=== PATIENT | female | born 2000 | race Caucasian/White ===

== ENCOUNTER 2020-05-23 18:45 | Outpatient (CLI) | payer OTHER, SELFPAY ==
[2020-05-23] MEDS ORDERED: OXYTOCIN 30 UNITS IN 0.9% NaCl 500ML IV BAG (J2590) ONE (19:26)
[2020-05-23] MEDS ORDERED: OXYTOCIN 30 UNITS IN 0.9% NaCl 500ML IV BAG (J2590) As Ordered ONE (19:26)
[2020-05-23] MEDS ORDERED: BUTORPHANOL 2 MG/ML INJ (J0595) As Ordered ONE (23:30)
[2020-05-23] MEDS ORDERED: PROMETHAZINE INJ 25 MG/ML VIAL (J2550) ONE (23:30)
[2020-05-23] MEDS ORDERED: BUTORPHANOL 2 MG/ML INJ (J0595) ONE (23:30)
[2020-05-23] MEDS ORDERED: PROMETHAZINE INJ 25 MG/ML VIAL (J2550) As Ordered ONE (23:30)
[2020-05-24] MEDS ORDERED: OXYTOCIN 30 UNITS IN 0.9% NaCl 500ML IV BAG (J2590) As Ordered ONE (00:23)
[2020-05-24] MEDS ORDERED: OXYTOCIN 30 UNITS IN 0.9% NaCl 500ML IV BAG (J2590) ONE (00:23)
[2020-05-24] MEDS ORDERED: IBUPROFEN 800 MG TAB ONE ×3 (00:23→18:31)
[2020-05-24] MEDS ORDERED: LIDOCAINE 1% MDV 20ML VIAL ONE (00:23)
[2020-05-24] MEDS ORDERED: LIDOCAINE 1% MDV 20ML VIAL As Ordered ONE (00:56)
[2020-05-24] MEDS ORDERED: IBUPROFEN 800 MG TAB As Ordered ONE ×3 (01:37→18:31)
== END 2020-05-23 20:50 ==
LOC: M LDO 18:45
PROVIDERS: ATTEND Obstetrics & Gynecology
DX: O36.8130 Decreased fetal movements, third trimester, not applicable or unspecified (principal); Z3A.32 32 weeks gestation of pregnancy
CPT/HCPCS: 59025; G0378; G0463; J2590

== ENCOUNTER 2020-06-26 12:52 | Outpatient (CLI) | payer OTHER, SELFPAY ==
[~2020-06-26] VITALS: Ht 157.5 cm; Wt 68.4 kg
[2020-06-26 13:07] VITALS: BP 117/77
[2020-06-26] MEDS ORDERED: STUACAP PO (13:12)
[2020-06-26] MEDS ORDERED: TUMS500C PO (13:12)
--- NOTE | 2020-06-26 23:44 | IPNPDOC ---
Obstetrical Progress Note Date of Service Jun 26, 2020 Subjective 20yo G1 at 37wks with c/o ctx. She was checked in office earlier and was 1cm. She reports active movement. No vaginal bleeding or LOF. O: vss AF cat 1 tracing, ctx q5-6 mins gen: well appearing abd: soft, nttp, gravid cx: 50/-3/post A/P: 20yo G1 @ 37wks with ctx, not active labor Reassuring status -home with labor precaution -f/u at next OB appt Objective Vital Signs Date Time Temp Pulse Resp B/P (MAP) Pulse Ox O2 Delivery O2 Flow Rate FiO2 06/26/20 13:07 97.6 100 18 117/77 (90) Room Air Assessment Variability: Moderate Heart Rate Tracing: Category I Tocometer Contractions: Yes Frequency: every 3-7 min. Sterile Vaginal Examination Dilation: 1cm Effacement (%): 50% Station: -3 Cervical Consistency: Medium Cervical Position: Posterior Postion/Presentation: Cephalic presentation Assessment and Plan Age: 20 : 1 Status: Reassuring JEANETH ECHAVARRIA MD. Jun 26, 2020 23:44
== END 2020-06-26 14:52 | disposition home or self-care (01) ==
LOC: M LDO 12:52
PROVIDERS: ATTEND Obstetrics & Gynecology
DX: O47.1 False labor at or after 37 completed weeks of gestation (principal); Z3A.37 37 weeks gestation of pregnancy
CPT/HCPCS: 59025; G0378; G0463

== ENCOUNTER 2020-07-07 17:08 | Outpatient (CLI) | payer OTHER ==
[~2020-07-07] VITALS: Ht 157.5 cm; Wt 68.2 kg
[~2020-07-07 17:08] MED LIST: STUACAP PO; TUMS500C PO
[2020-07-07 17:30] VITALS: BP 126/71
[2020-07-07] MEDS ORDERED: MAPA500T2 PO (17:46)
--- NOTE | 2020-07-07 18:17 | IPNPDOC ---
Text Note Date of Service The patient was seen on 07/07/20. NOTE S: 20yo 39.2wks by LMP c/w 1st trimester US. C/o Nausea w/ x1 emesis. Minimal PO since emesis. No diarrhea. No sick contacts or change in eating. Has BH intermittently. No VB, LOF. Good FM. No headaches or visual changes. O: VSS WNL ABD: NT, gravid LE: No edema, NT ENT: mildly dry MMM SVE: FHT: Cat 1, 130s, reactive, no decels, irregular ctx A/P: Fetus reassuring. No evidence of active labor or SROM. Likely food caused or gastroenteritis. Will tx to ER. Report given. Given hydration precautions. Has follow up 07/11/2020. VS,Fishbone, I+O VS, Fishbone, I+O Vital Signs Date Time Temp Pulse Resp B/P (MAP) Pulse Ox O2 Delivery O2 Flow Rate FiO2 07/07/20 17:30 98.4 82 18 126/71 (89) Sue Johnson MD Jul 07, 2020 18:17
== END 2020-07-07 18:15 | disposition home or self-care (01) ==
LOC: M LDO 17:08
PROVIDERS: ATTEND Obstetrics & Gynecology
DX: O99.613 Diseases of the digestive system complicating pregnancy, third trimester (principal); Z3A.39 39 weeks gestation of pregnancy
CPT/HCPCS: 59025; G0378; G0463

== ENCOUNTER 2020-07-12 21:34 | Outpatient (CLI) | payer OTHER ==
[~2020-07-12] VITALS: Ht 157.5 cm; Wt 69.5 kg
[~2020-07-12 21:34] MED LIST changes: +MAPA500T2 PO
--- NOTE | 2020-07-12 22:29 | IPNPDOC ---
Text Note Date of Service The patient was seen on 07/12/20. NOTE S: 20yo 40.0wks by LMP c/w 1st trimester US. C/o small trickle a few times an hour ago. Nothing since. Ctx q3-5min x1hr. Good FM. No headaches or visual changes. Asked to be "stripped". O: VSS WNL ABD: NT, gravid LE: No edema, NT SSE: No fluid or pooling, negative nitrazine, negative ferning SVE: FT//-3 FHT: Cat 1, 130s, reactive, no decels, irregular ctx TAUS: vtx, anterior placenta, deepest pocket 5.5cm A/P: Fetus reassuring. No evidence of active labor or SROM. Has IOL scheduled next week. Sue Johnson MD Jul 12, 2020 22:29
== END 2020-07-12 22:20 | disposition home or self-care (01) ==
LOC: M LDO 21:34
PROVIDERS: ATTEND Obstetrics & Gynecology
DX: O47.1 False labor at or after 37 completed weeks of gestation (principal); Z3A.40 40 weeks gestation of pregnancy
CPT/HCPCS: 59025; G0378; G0463

== ENCOUNTER 2020-07-16 04:52 | Inpatient (IN) | payer OTHER ==
[2020-07-16] VITALS (29 sets, daily range): BP systolic 113–155; BP diastolic 59–87
[~2020-07-16] VITALS: Ht 157.5 cm; Wt 69.1 kg
[2020-07-16] MEDS ORDERED: SERT25TA21 PO (05:28)
[2020-07-16] MEDS ORDERED: BENA25CA4 PO (05:28)
--- NOTE | 2020-07-16 06:09 | HPEPDOC ---
Obstetrical History & Physical General Date of Admission Jul 16, 2020 at 05:49 History of Present Illness 20yo at 40+4 presents for a labor check. She denied VB, LOF, decreased FM. She denied n/v/d, cp, sob, mills, visual changes, f/c, vaginal bleeding, dc, urinary sx. 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: History of STD (chlamydia 2018) Past Medical History Medical History Anxiety Surgical History: Tooth extraction Family History Significant Family History: No pertinent family hx Social History Psychosocial History: Anxiety * Smoker: non-smoker Alcohol: Denies Drugs: denies Imunizations Tdap status: current Allergies Coded Allergies: No Known Drug Allergies (Verified Allergy, Unknown, 07/07/20) Medications Scheduled Sertraline HCl (Sertraline HCl) 25 Mg Tablet, 75 MG PO DAILY Scheduled PRN Diphenhydramine HCl (Benadryl) 25 Mg Capsule, 2 CAP PO QPMP PRN for SLEEP Miscellaneous Medications Pnv No.63/Iron,Carb/Folic/Dha (Slava One Capsule) 1 Each Capsule, 1 CAP PO Physical Examination Physical Examination GENERAL: Alert and oriented times three. BREAST: . ABDOMEN: Gravid and non-tender to touch. FETUS: Is vertex (VTX) by sterile vaginal examination (SVE), fetus is vertex (VTX) by Alfonso. HEART RATE: Regular rate and rhythm. LUNGS: Clear to auscultation (CTA). EXTREMITIES: No edema. No clonus. Deep tendon reflexes (DTRs) + . Laboratory Data Urine Culture: Contaminated Pertinent Laboratoy Data Blood Type: O+ RBC Antibody Screen: Negative HIV: Negative Hepatitis B: Negative Rapid Plasma Reagin: Nonreactive Rubella: Immune Varicella: Nonreactive Chlamydia/Gonorrhea: Negative Group B Streptococcus: Negative Quad Screen Test: Declined Cystic Fibrosis: Declined Glucose Tolerance Test: 105 Anatomy Ultrasound Placenta Location: Anterior Normal Anatomy: Yes Steroid Therapy Steroid Therapy: No Vaginal Examination Dilation: 1cm Station: -3 Cervical Consistency: Medium Cervical Position: Posterior Presentation: Cephalic presentation (by US) Assessment Heart Rate (FHR): 120 Variability: Moderate Accelerations: Positive Decelerations: None Tocometer Contractions: Yes Frequency: regular Multi-drug resistant Organism: No history of MDRO Assessment/Plan Assessment 20yo at 40+4 presents for a labor check. VS normal (although borderline to mild range and prior mild range, suspect potential progression to GHTN). CAT I tracing, reactive. SVE 1cm which is unchanged from prior exam. On US she had an JULIO CESAR of 1.33cm, will admit for IOL for oligohydraminos. APC 1. 48# weight gain in 2. gestational thrombocytopenia, last 30JUL 142 3. anxiety on sertaline 75mg/d 4. oligohydraminos on admission 5. mild range BP 07/11 6. varicella non-immune Plan Admit and orient. Operations Architect and consent. Diet: clears Group B Streptococcus (GBS) negative Labs and intravenous (IV) per unit protocol. Counseled on Pitocin, DLFB and induction of labor (IOL). Anticipate normal spontaneous delivery () C-S as appropriate. If another mild range BP will draw pre-eclampsia labs ELAINA CALDWELL DO Jul 16, 2020 06:09
[2020-07-16 06:19] LABS: HEMATOCRIT 37.8 % (36.0-47.0); HEMOGLOBIN 12.8 g/dl (12.0-15.5); MEAN CORPUSCULAR HEMOGLOBIN 29.4 pg (27.0-33.0); MEAN CORPUSCULAR HGB CONC 33.9 g/dl (32.0-36.5); MEAN CORPUSCULAR VOLUME 86.7 fl (80.0-96.0); PLATELET COUNT, AUTOMATED 128 10^3/uL (150-450); RED BLOOD COUNT 4.36 10^6/uL (4.00-5.40); WHITE BLOOD COUNT 11.1 10^3/uL (4.0-10.0)
[2020-07-16] MEDS ORDERED: BUTORPHANOL 2 MG/ML INJ (J0595) IV ONE (06:45)
[2020-07-16] MEDS ORDERED: PROMETHAZINE INJ 25 MG/ML VIAL (J2550) IV ONE (06:45)
--- NOTE | 2020-07-16 07:53 | IPNPDOC ---
Obstetrical Progress Note Date of Service Jul 16, 2020 Subjective 20 at 40w4d for IOL for oligohydramnios with cook balloon in place. Pt states that contractions becoming more painful. She has had a dose of stadol and phenergan. She has supportive family at the bedside. Plan of care was discussed with patient and family, all questions answered. Objective Vital Signs Date Time Temp Pulse Resp B/P (MAP) Pulse Ox O2 Delivery O2 Flow Rate FiO2 07/16/20 07:29 18 07/16/20 05:12 98.9 72 133/81 (98) Assessment Heart Rate (FHR): 145 Variability: Moderate Accelerations: Positive Decelerations: Variable Heart Rate Tracing: Category III Tocometer Contractions: Yes Frequency: irregular Assessment and Plan Age: 20 : 1 Term: 0 Pre-term: 0 Abortions: 0 Livin EGA at Admission: 40 (+4) Weeks & Days 40w4d Status: Reassuring Group B Streptococcus: Negative Anticipate: Vaginal Delivery Additional Comments Consider starting pitocin at 0900 if contractions patter remains irregular NICOL PAEZ CNM Jul 16, 2020 07:53
[2020-07-16] MEDS ORDERED: OXYTOCIN 30 UNITS IN 0.9% NaCl 500ML IV BAG (J2590) As Ordered ONE (08:51)
[2020-07-16] MEDS ORDERED: SERTRALINE HCL 25 MG TABLET PO SCH ×2 (09:00→21:00)
[2020-07-16] MEDS ORDERED: OXYTOCIN DRIP 30 UNITS in IV 1 EA IV SCH ×2 (09:00→21:00)
[2020-07-16] MEDS: LR 1,000 ML IV SCH ×2 (09:03→10:45)
[2020-07-16] MEDS ORDERED: FENTANYL 2MCG/ML ROPIVACAINE 0.2% IN 0.9% NACL 100ML IVBAG As Ordered ONE (09:44)
[2020-07-16] MEDS ORDERED: ePHEDrine SULFATE 25 MG/5 ML(5MG/ML) SYRINGE IV PRN (11:30)
[2020-07-16] MEDS ORDERED: REFRIGERATOR IV KEYS XX PRN (11:30)
[2020-07-16] MEDS ORDERED: diphenhydrAMINE 50MG/ML VIAL (J1200) IV PRN (11:30)
[2020-07-16] MEDS ORDERED: EPIDURAL/PCA KEYS XX PRN (11:30)
[2020-07-16] MEDS ORDERED: LACTATED RINGER'S 1000 ML IV PRN (11:30)
[2020-07-16] MEDS ORDERED: NALOXONE INJ 0.4MG/1ML VIAL (J2310 PER 1MG) IV PRN (11:30)
[2020-07-16] MEDS ORDERED: EPIDURAL COMMENT XX SCH (11:30)
[2020-07-16] MEDS ORDERED: ONDANSETRON 4MG/2ML VIAL IV PRN ×2 (11:30→21:00)
[2020-07-16] MEDS ORDERED: FENTANYL/ROPIVACAINE/NACL BAG 100 ML EPIDURAL SCH (11:30)
--- NOTE | 2020-07-16 13:18 | IPNPDOC ---
Obstetrical Progress Note Date of Service Jul 16, 2020 Subjective 20 yo at 40w4d here for IOL for oligohydramnios. She is comfortable with her epidural. Her cook balloon was found at the introitus intact. She has supportive family at the bedside. Objective Vital Signs Date Time Temp Pulse Resp B/P (MAP) Pulse Ox O2 Delivery O2 Flow Rate FiO2 07/16/20 12:10 84 124/65 (84) 07/16/20 11:15 97.8 20 Assessment Heart Rate (FHR): 135 Variability: Moderate Accelerations: Present Decelerations: None Heart Rate Tracing: Category I Tocometer Contractions: Yes Frequency: regular (every 4 minutes) Sterile Vaginal Examination Dilation: 7 cm Effacement (%): 80% Station: -2 Postion/Presentation: Cephalic presentation Assessment and Plan Age: 20 : 1 Term: 0 Pre-term: 0 Abortions: 0 Livin EGA at Admission: 40 (+4) Weeks & Days 40w4d Status: Reassuring Group B Streptococcus: Negative Anticipate: Vaginal Delivery NICOL PAEZ CNM Jul 16, 2020 13:15
--- NOTE | 2020-07-16 14:57 | IPNPDOC ---
Obstetrical Progress Note Date of Service Jul 16, 2020 Subjective 20 yo 40w4d here for IOL for oligohydramnios. Pt having recurrent late decels with contractions after SROM with no resolution with interventions. Discussed recommendations for placing FSE/IUPC and starting amnioinfusion. Pt and spouse are agreeable to plan. All questions answered. Objective Vital Signs Date Time Temp Pulse Resp B/P (MAP) Pulse Ox O2 Delivery O2 Flow Rate FiO2 07/16/20 12:10 84 124/65 (84) 07/16/20 11:15 97.8 20 AROM forebag for meconium stained fluid IUPC and FSE placed without difficulty Amnioinfusion to start Assessment Heart Rate (FHR): 145 Variability: Moderate Accelerations: None Decelerations: Variable Heart Rate Tracing: Category III Tocometer Contractions: Yes Frequency: regular (every 3-5 min) Sterile Vaginal Examination Dilation: 7 cm Effacement (%): 80% Station: -2 Postion/Presentation: Cephalic presentation Assessment and Plan Age: 20 : 1 Term: 0 Pre-term: 0 Abortions: 0 Livin EGA at Admission: 40 (+4) Weeks & Days 40w4d Group B Streptococcus: Negative Anticipate: Vaginal Delivery Additional Comments NICU team notified of thick meconium NICOL PAEZ CNM Jul 16, 2020 14:54
[2020-07-16] MEDS ORDERED: ANUSOL HC CREAM 30GM TOP PRN (21:00)
[2020-07-16] MEDS ORDERED: SIMETHICONE 80 MG CHEW TAB PO PRN (21:00)
[2020-07-16] MEDS ORDERED: CALCIUM CARBONATE 500 MG CHEW U/D PO PRN (21:00)
[2020-07-16] MEDS ORDERED: RHOGAM 300 MCG (1500 IU) INJ (J2790) IM SCH (21:00)
[2020-07-16] MEDS ORDERED: MOM 30ML SUSPENSION UDC PO PRN (21:00)
[2020-07-16] MEDS ORDERED: diphenhydrAMINE 25MG CAP PO PRN (21:00)
[2020-07-16] MEDS ORDERED: ACETAMINOPHEN 500 MG TAB PO PRN (21:00)
[2020-07-16] MEDS ORDERED: METHYLERGONOVINE MALEATE 0.2 MG TAB PO PRN (21:00)
[2020-07-16] MEDS ORDERED: cefTRIAXone SOD 1 GM in D5W MINI-BAG PLUS 50 ML IV ONE (21:00)
[2020-07-16] MEDS ORDERED: DIBUCAINE 1% OINTMENT 30GM TOP PRN (21:00)
[2020-07-16] MEDS ORDERED: MEASLES,MUMPS,RUBELLA VACCINE INJ (MMR-II) (90707) SC SCH (21:00)
[2020-07-16] MEDS: SERTRALINE HCL 25 MG TABLET PO SCH (21:03)
--- NOTE | 2020-07-16 21:13 | DNPDOC ---
[facility] Delivery Note Delivery Note DATE OF DELIVERY: 07/16/2020 PREDELIVERY DIAGNOSIS: 40-4/7 weeks' gestation and labor. POST DELIVERY DIAGNOSIS: Delivered. PROCEDURE: Spontaneous vaginal delivery. INTERFACE ANALYST: Dr. Sue Johnson ANESTHESIA: Epidural. ESTIMATED BLOOD LOSS: 200 mL. FINDINGS: 8 pound 5 ounce 3780gm boy , Score 9/9, nuchal cord times 0. Total labor time 10hrs. SROM at 1440 thick meconium. DELIVERY SUMMARY: Patient was complete and pushing upon my arrival. Spontaneous vaginal delivery of LEW head over intact perineum. Nose and mouth were bulb suction. Nuchal cord was not noted. Shoulders and then body was easily delivered without problems at 2032. Baby was handed to pediatrics. Pitocin was bolused. Cord was clamped x2 and cut when pulsation stopped. Cord blood was obtained. Placenta was delivered spontaneously and intact with a 3 vessel cord at 2039. Perineum and vagina was inspected and found to have right introital. Repair was done with 3-0 chromic. Lap, instrument, and needle count was correct. Mom and baby were bonding. Sue Johnson MD Jul 16, 2020 21:13
[2020-07-16] MEDS: DOCUSATE SODIUM 100 MG CAP PO SCH (21:30)
[2020-07-16] MEDS: IBUPROFEN 800 MG TAB PO PRN (21:31)
[2020-07-17 00:24] VITALS: BP 115/75
[2020-07-17 05:59] VITALS: BP 138/61
--- NOTE | 2020-07-17 07:11 | IPNPDOC ---
Progress Note Date of Service: Jul 17, 2020 Day#: 1 Progress Note SUBJECT: Patient is a 20-year-old 1 now Para 1 status post uncomplicated spontaneous vaginal delivery with post right introital laceration and repair, doing well day # 1. She has been ambulating, voiding spontaneously without issue and tolerating regular diet. Breast feeding without issue. Reports lochia is like a normal period. Patient is ambulating well. Reports some cramping with . Has mild pain. OBJECTIVE: VITAL SIGNS: Within normal limits, afebrile. Alert and oriented times three. Breath sounds clear to auscultation. Heart rate: Regular rate and rhythm, no murmurs, rubs or gallops. Abdomen: Fundus firm at U-2. Soft, NTTP. Perineum: intact, Minimal lochia. LE: no edema, NT ASSESSMENT: Patient is a 20-year-old 1 now Para 1 status post uncomplicated spontaneous vaginal delivery with post right introital laceration and repair, doing well day # 1. Vitals within normal limits, afebrile, hemodynamically stable with no evidence of infection. PLAN: 1. Continue care. 2. Tylenol and Motrin for pain. 3. Encourage breast feeding and ambulation. VS, I&O, 24H, Fishbone Vital Signs/I&O Vital Signs Date Time Temp Pulse Resp B/P (MAP) Pulse Ox O2 Delivery O2 Flow Rate FiO2 07/16/20 12:10 84 124/65 (84) 07/16/20 11:15 97.8 20 Laboratory Data 24H LABS Laboratory Tests 2 07/16/20 05:57: Nucleated Red Blood Cells % (auto) 0.0, Syphilis Serology NONREACTIVE 07/16/20 05:57: Serology Scanned Report Hepatitis B Testing CBC/BMP Laboratory Tests 07/16/20 05:57 Sue Johnson MD Jul 16, 2020 21:15
[2020-07-17] MEDS: PRENATAL VITAMINS CHEWABLE TABLET PO SCH (08:03)
[2020-07-17] MEDS: IBUPROFEN 800 MG TAB PO PRN ×2 (08:03→20:53)
[2020-07-17] MEDS: DOCUSATE SODIUM 100 MG CAP PO SCH ×2 (08:03→20:52)
[2020-07-17 18:01] VITALS: BP 131/63
[2020-07-17] MEDS: SERTRALINE HCL 25 MG TABLET PO SCH (20:53)
[2020-07-18 06:15] VITALS: BP 110/64
[2020-07-18] MEDS ORDERED: IBUP80TA PO (07:23)
[2020-07-18] MEDS ORDERED: SERT25TA21 PO (07:23)
[2020-07-18] MEDS ORDERED: DOCU100C16 PO (07:23)
[2020-07-18] MEDS ORDERED: DIBU10OI TOP (07:23)
[2020-07-18] MEDS: PRENATAL VITAMINS CHEWABLE TABLET PO SCH (08:44)
[2020-07-18] MEDS: DOCUSATE SODIUM 100 MG CAP PO SCH (08:44)
--- NOTE | 2020-07-22 14:14 | IPN ---
DATE: 07/17/2020 This lady requested circumcision of her male infant. After discussing risks and benefits of circumcision, the medical and nonmedical indications, the penile block, and aftercare, expressed understanding of penile rekha, aftercare, and bleeding, signed the consent form. All questions were answered. A 20-minute discussion. We await the clearance by the foam fabricator. KAITLYN
--- NOTE | 2020-07-22 14:16 | DSES ---
DATE OF ADMISSION: 07/16/2020 DATE OF DISCHARGE: 07/18/2020 DATE OF SERVICE: 07/18/2020 This lady is a 20-year-old 1 who was admitted for a labor check at 40 and 4 weeks of gestation, found to have oligohydramnios and was admitted for induction of labor. Had a spontaneous vaginal delivery of a male infant, 8 pounds 5 ounces, 3780 grams, meconium was noted at delivery, scores were 9 and 9 at 1 and 5 minutes, respectively. She did have an epidural. Her admitting hemoglobin was 12.8, hematocrit 37.8, and platelets were 128. Her discharge blood pressure 110/64, respirations 18, pulse 56, temperature is 97.3. The rest of the examination is unremarkable. Normocephalic, atraumatic. Neck full range of motion. Pupils equal and reactive to light. Distal pulses are symmetric. No evidence of deep venous thrombosis (DVT), pulmonary embolus (PE), or superficial phlebitis. Chest is clear bilaterally to bases. No wheezes or rhonchi. No costovertebral angle (CVA) tenderness. Abdomen is soft, four quadrant bowel sounds are noted. Uterus two below. Lochia is moderate. Perineum is healing. No rashes, lesions, or pruritus. No arthralgia, myalgia, no complaint of joint pain. No complaint of cough, wheeze, shortness of breath, or dyspnea on exertion. No nausea, vomiting, diarrhea, or constipation. In summary, we have a late term gestation, delivered a live male . Plans are for medication pickup at [place], 6 week checkup at [facility], at which time control will be discussed. All questions were answered, 20 minute discussion. Patient was discharged improved. MTDD
== END 2020-07-18 13:55 | disposition home or self-care (01) | DRG 806 ==
LOC: M LDO 04:52 → M LDI 05:49 → M OBS 23:18
PROVIDERS: ADMIT Obstetrics & Gynecology; ATTEND Obstetrics & Gynecology
PROC: 10E0XZZ Delivery of Products of Conception, External Approach (ICD-10-PCS; principal; 2020-07-16)
PROC: 0HQ9XZZ Repair Perineum Skin, External Approach (ICD-10-PCS; 2020-07-16)
PROC: 3E033VJ Introduction of Other Hormone into Peripheral Vein, Percutaneous Approach (ICD-10-PCS; 2020-07-16)
DX: O41.03X0 Oligohydramnios, third trimester, not applicable or unspecified (principal); Z37.0 Single live birth; O99.12 Other diseases of the blood and blood-forming organs and certain disorders involving the immune mechanism complicating childbirth; O48.0 Post-term pregnancy; Z3A.40 40 weeks gestation of pregnancy; D69.6 Thrombocytopenia, unspecified; O99.344 Other mental disorders complicating childbirth; F41.9 Anxiety disorder, unspecified; O76 Abnormality in fetal heart rate and rhythm complicating labor and delivery; O77.0 Labor and delivery complicated by meconium in amniotic fluid; O70.0 First degree perineal laceration during delivery

== ENCOUNTER → 2021-02-02 | Outpatient (REF) | payer OTHER ==
[~2021-02-02] MED LIST changes: +BENA25CA4 PO; +DIBU28OI2 TOP; +DOCU100C16 PO; +IBUP80TA PO; +SERT25TA21 PO
== END ==
LOC: M LAB REF 17:45
PROVIDERS: ATTEND Nurse Practitioner Family
DX: N39.0 Urinary tract infection, site not specified (principal)